=== PATIENT | male | born 1950 | race Caucasian/White ===

== ENCOUNTER → 2016-12-01 | Outpatient (CLI) | payer MEDICARE ==
[~2016-12-01] MED LIST: BECL8.7A6 INH; LEVA15HF4 INH; MONT10TA6 PO; THEO300T9 PO
== END | disposition home or self-care (01) ==
LOC: CFH 16:01
PROVIDERS: ATTEND Family Medicine
DX: M16.0 Bilateral primary osteoarthritis of hip (principal); M25.752 Osteophyte, left hip; M25.751 Osteophyte, right hip; M85.451 Solitary bone cyst, right pelvis; M85.452 Solitary bone cyst, left pelvis; K59.09 Other constipation

== ENCOUNTER → 2017-09-14 | Outpatient (CLI) | payer MEDICARE ==
[~2017-09-14] MED LIST changes: +OMNIPAQUE 350 MG/ML, 100ML BOTTLE ONE
== END | disposition home or self-care (01) ==
LOC: CFH 12:58
PROVIDERS: ATTEND Surgery
DX: N40.0 Benign prostatic hyperplasia without lower urinary tract symptoms (principal); N20.0 Calculus of kidney; K59.00 Constipation, unspecified
CPT/HCPCS: 74177; 82565; Q9967

== ENCOUNTER 2017-12-12 01:19 | Emergency (ER) | payer MEDICARE ==
[~2017-12-12] VITALS: Ht 180.3 cm; Wt 80.0 kg
[~2017-12-12 01:19] MED LIST changes: -OMNIPAQUE 350 MG/ML, 100ML BOTTLE ONE
[2017-12-12 01:24] VITALS: BP 145/89
[2017-12-12 01:55] LABS: BASOPHILS # (AUTO) 0.03 x10^3/uL (0-0.1); BASOPHILS % (AUTO) 0 % (0-1); EOSINOPHILS # (AUTO) 0.19 x10^3/uL (0-0.4); EOSINOPHILS % (AUTO) 1 % (1-7); LYMPHOCYTES # (AUTO) 2.24 x10^3/uL (1-3.4); LYMPHOCYTES % (AUTO) 14 % (22-44); MD NO; MEAN CORPUSCULAR HEMOGLOBIN 31.9 pg (27.5-34.5); MEAN CORPUSCULAR HGB CONC 34.3 g/dL (33.2-36.2); MEAN CORPUSCULAR VOLUME 93.1 fL (81-97); MONOCYTES # (AUTO) 1.33 x10^3/uL (0.2-0.8); MONOCYTES % (AUTO) 8 % (2-9); NEUTROPHILS # (AUTO) 11.96 x10^3/uL (1.8-6.8); NEUTROPHILS % (AUTO) 76 % (42-75); PLATELET COUNT 242 x10^3/uL (130-400); RED BLOOD COUNT 4.94 x10^6/uL (4.38-5.82); RED CELL DISTRIBUTION WIDTH 13.7 % (9.4-14.8)
[2017-12-12] MEDS ORDERED: SODIUM CHLORIDE FLUSH 10ML SYR IVF ONE (02:00)
[2017-12-12] MEDS ORDERED: KETOROLAC 30 MG/1 ML IVPush ONE (02:00)
[2017-12-12] MEDS ORDERED: DEXAMETHASONE 4 MG TABLET PO ONE (02:00)
[2017-12-12 02:07] LABS: ANION GAP 7 mmol/L (5-15); CALCIUM 9.8 mg/dL (8.5-10.1); CHLORIDE 108 mmol/L (98-107); CREATININE 1.22 mg/dL (0.7-1.3)
[2017-12-12] MEDS ORDERED: KETOROLAC 30 MG/1 ML ONE (02:14)
[2017-12-12] MEDS ORDERED: DEXAMETHASONE 4 MG TABLET ONE (02:14)
== END 2017-12-12 04:23 | disposition home or self-care (01) ==
LOC: ED 04:17
DX: J03.00 Acute streptococcal tonsillitis, unspecified (principal); J45.909 Unspecified asthma, uncomplicated
CPT/HCPCS: 36415; 70491; 80048; 82040; 85025; 96374; 99285; J1885

== ENCOUNTER → 2018-01-18 | Outpatient (CLI) | payer MEDICARE | END | disposition home or self-care (01) | LOC: CFH 15:55 | PROVIDERS: ATTEND Family Medicine | DX: M16.0 Bilateral primary osteoarthritis of hip (principal); Q65.89 Other specified congenital deformities of hip | CPT/HCPCS: 72190 ==

== ENCOUNTER 2018-04-29 14:17 | Emergency (ER) | payer MEDICARE ==
[~2018-04-29] VITALS: Ht 180.3 cm; Wt 82.9 kg
[2018-04-29] MEDS ORDERED: DILTIAZEM 5 MG/ML, 5ML IVPush ONE (15:00)
[2018-04-29] MEDS ORDERED: DILTIAZEM 5 MG/ML, 5ML ONE (15:16)
[2018-04-29 15:21] LABS: BASOPHILS # (AUTO) 0.05 x10^3/uL (0-0.1); BASOPHILS % (AUTO) 1 % (0-1); EOSINOPHILS # (AUTO) 0.28 x10^3/uL (0-0.4); EOSINOPHILS % (AUTO) 3 % (1-7); LYMPHOCYTES # (AUTO) 2.02 x10^3/uL (1-3.4); LYMPHOCYTES % (AUTO) 21 % (22-44); MD NO; MEAN CORPUSCULAR HEMOGLOBIN 30.8 pg (27.5-34.5); MEAN CORPUSCULAR VOLUME 93.3 fL (81-97); MEAN PLATELET VOLUME 8.4 fL (7.4-10.4); MONOCYTES # (AUTO) 0.66 x10^3/uL (0.2-0.8); MONOCYTES % (AUTO) 7 % (2-9); NEUTROPHILS % (AUTO) 68 % (42-75); PLATELET COUNT 243 x10^3/uL (130-400); RED BLOOD COUNT 4.97 x10^6/uL (4.38-5.82); RED CELL DISTRIBUTION WIDTH 13.8 % (9.4-14.8)
[2018-04-29 15:30] LABS: ALANINE AMINOTRANSFERASE 37 U/L (12-78); ALBUMIN 4.1 g/dL (3.4-5.0); ANION GAP 7 mmol/L (5-15); CALCIUM 9.8 mg/dL (8.5-10.1); CHLORIDE 110 mmol/L (98-107); CREATININE 1.17 mg/dL (0.7-1.3)
[2018-04-29 15:34] LABS: ALKALINE PHOSPHATASE 65 U/L (45-117); BILIRUBIN,TOTAL 0.3 mg/dL (0.2-1.0); TOTAL PROTEIN 8.2 g/dL (6.4-8.2); TROPONIN I < 0.015 ng/mL (0.000-0.045)
[2018-04-29] MEDS ORDERED: DILTIAZEM 60 MG TABLET PO STA (15:47)
[2018-04-29] MEDS ORDERED: ENOXAPARIN 80 MG/0.8 ML SQ ONE (16:00)
--- NOTE | 2018-04-29 16:25 | NUR ---
PT RESTING ON GURNEY, APPEARS TO BE IN NSR ON MONITOR. MD AWARE AND TO BEDSDIE TO ASSES PT. HOLDING CARDIZEM PO AT THIS TIME.
[2018-04-29] MEDS ORDERED: ENOXAPARIN 80 MG/0.8 ML ONE (17:35)
[2018-04-29 17:45] VITALS: BP 137/73
--- NOTE | 2018-04-29 17:51 | NUR ---
Patient/Caregiver given discharge instructions and they have confirmed that they understand the instructions. Patient ambulatory with steady gait. PT LEFT WITH ALL PERSONAL BELONGINGS.
== END 2018-04-29 18:15 | disposition home or self-care (01) ==
LOC: ED 16:08
DX: I48.0 Paroxysmal atrial fibrillation (principal); J45.909 Unspecified asthma, uncomplicated
CPT/HCPCS: 36415; 71045; 80053; 83735; 84484; 85025; 93005; 96372; 96374; 99284; J1650

== ENCOUNTER → 2018-06-14 | Outpatient (CLI) | payer MEDICARE | END | disposition home or self-care (01) | LOC: CFH 09:47 | PROVIDERS: ATTEND Family Medicine | DX: I07.1 Rheumatic tricuspid insufficiency (principal); I71.9 Aortic aneurysm of unspecified site, without rupture; I48.91 Unspecified atrial fibrillation | CPT/HCPCS: 93306 ==

== ENCOUNTER → 2019-09-21 | Outpatient (CLI) | payer MEDICARE | END | disposition home or self-care (01) | LOC: RAD 08:00 | PROVIDERS: ATTEND Nurse Practitioner | DX: H44.6 Retained (old) intraocular foreign body, magnetic (principal) | CPT/HCPCS: 70200 ==

== ENCOUNTER 2019-10-12 07:58 | Day surgery (SDC) | payer MEDICARE ==
[~2019-10-12] VITALS: Ht 180.3 cm; Wt 77.2 kg
[2019-10-12] MEDS ORDERED: SODIUM CHLORIDE 0.9% 1,000 ML IV SCH (08:46)
[2019-10-12] MEDS ORDERED: LIDOCAINE 1%, 20ML ONE (08:48)
== END 2019-10-12 09:30 | disposition home or self-care (01) ==
LOC: CACL 07:58
PROVIDERS: ATTEND Internal Medicine Cardiovascular Disease
DX: R00.2 Palpitations (principal); I63.9 Cerebral infarction, unspecified; I25.10 Atherosclerotic heart disease of native coronary artery without angina pectoris; I48.0 Paroxysmal atrial fibrillation; I71.9 Aortic aneurysm of unspecified site, without rupture; J45.909 Unspecified asthma, uncomplicated; Z79.82 Long term (current) use of aspirin; Z79.01 Long term (current) use of anticoagulants; Z79.899 Other long term (current) drug therapy
CPT/HCPCS: 33285; C1764

== ENCOUNTER 2019-10-24 08:07 | Emergency (ER) | payer MEDICARE ==
[~2019-10-24] VITALS: Ht 180.3 cm; Wt 82.5 kg
[~2019-10-24 08:07] MED LIST changes: +THEO300T26 PO; -THEO300T9 PO
--- NOTE | 2019-10-24 08:40 | NUR ---
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 STEADY UPON AMBULATION. NO ACUTE DISTRESS NOTED AT THIS TIME.
[2019-10-24] MEDS ORDERED: RIVA20TA PO (08:52)
--- NOTE | 2019-10-24 08:57 | NUR ---
TASK RN: ER PA AT BEDSIDE. PT ASSESSMENT AND POC DISCUSSED, QUESTIONS ANSWERED. CALL LIGHT W/I REACH, NAD NOTED.
--- NOTE | 2019-10-24 10:03 | NUR ---
REPORT RECEIVED FROM EVELINE EL , PT RESTING ON GURNEY, RT LOWER EXTREMITY ELEVATED. CMS INTACT, +3 DORSALIS PULSE NOTED TO RT FOOT. PT NOTES 5/10 RT LOWER EXT PAIN, DECLINES PAIN MEDICINE. VS REASSESSED, HR, REGULAR. PT STATES THIS IS HIS BASELINE. PT A&O, RESPS EVEN AND UNLABORED. AWAITING XRAY AND DISPO.
--- NOTE | 2019-10-24 10:10 | NUR ---
xray at bedside.
[2019-10-24 12:09] VITALS: BP 132/58
--- NOTE | 2019-10-24 12:26 | NUR ---
PT GIVEN DC INSTRUCTIONS, RT LEG WRAPPED IN BOLA BANDAGE. PT WHEELED TO DC DESK VIA WAYLON. [place] AT [place].
== END 2019-10-24 12:24 | disposition home or self-care (01) ==
LOC: ED 11:00
DX: S86.911A Strain of unspecified muscle(s) and tendon(s) at lower leg level, right leg, initial encounter (principal); S80.11XA Contusion of right lower leg, initial encounter; J45.909 Unspecified asthma, uncomplicated; I48.91 Unspecified atrial fibrillation; X58.XXXA Exposure to other specified factors, initial encounter; Y93.89 Activity, other specified; Y92.89 Other specified places as the place of occurrence of the external cause; Y99.8 Other external cause status
CPT/HCPCS: 99284